=== PATIENT | male | born 1970 | race Caucasian/White ===

== ENCOUNTER 2016-11-27 09:10 | Inpatient (IN) | payer OTHER ==
[~2016-11-27] VITALS: Ht 175.2 cm; Wt 59.1 kg
--- NOTE | ~2016-11-27 | CON ---
[place], [place] REPORT OF CONSULTATION NAME: VERNON ANTONIO [facility] #: [id number] UNIT #: [id number] ROOM: 530 DOCTOR: FREDA DUNNE MD BIRTHDATE: [birth year] DOS: 11/27/2016 CARDIOLOGY CONSULTATION CHIEF COMPLAINT: Chest pain. HISTORY OF PRESENT ILLNESS: The patient is a 46-year-old man who has no previous history of coronary disease. About 1 week ago, he developed an aching sensation in his left chest that radiated to his back. This lasted 2-3 days and then resolved. Since then, however, he has been experiencing a tingling sensation from his left shoulder to his left hand. There is nothing that seems to make this any better or any worse, although it is best early in the day and worst as the day goes on. He denies any associated diaphoresis, nausea or dyspnea. Exertion does not seem to make the pain immediately worse. He was hospitalized today for these complaints. Thus far, his electrocardiogram shows no acute changes and troponin levels have been normal. PAST MEDICAL HISTORY: Includes: 1. Remote history of alcohol abuse. The patient has been abstinent for quite some time. 2. History of cigarette abuse. The patient has curtailed his use recently, but still smokes several cigarettes a day. The patient denies any history of hypertension, diabetes, hyperlipidemia, myocardial infarction or stroke. FAMILY HISTORY: The patient's father had a "silent heart attack before his 60s." He has had 3 heart attacks in his late 60s in the last year or so. His mother has a history of chronic kidney disease. MEDICATIONS: Prior to admission, the patient had no prescribed medications prior to admission. ALLERGIES: The patient has no known drug allergies. REVIEW OF SYSTEMS: The patient denies diplopia or loss of vision. He denies focal weakness, but he does think that his left arm has been slightly weaker since it has become tingly. He denies fevers, chills, sweats or recent weight change. He denies nausea or vomiting. He denies orthopnea or PND. He denies cough, hemoptysis or hematemesis. He denies any change in bowel or bladder habits. He denies any blood in his stools or urine. He denies any peripheral edema. He denies any hot or swollen joints. He denies heat intolerance, polydipsia or polyuria. He denies any skin rashes. The remainder of the review of systems is negative except as noted above. 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 He does smoke several cigarettes a day. PHYSICAL EXAMINATION: [place], [place] REPORT OF CONSULTATION NAME: VERNON ANTONIO UNIT #: [id number] ROOM: 530 DOCTOR: FREDA DUNNE MD BIRTHDATE: [birth year] GENERAL: The patient is a slender white male who is awake, alert and oriented. VITAL SIGNS: Pulse is 60 and regular, blood pressure is 110/64. He is afebrile. He weighs 59.1 kg and has a body mass index of 19.3 HEENT: Normocephalic, atraumatic. Extraocular muscles are intact. Sclerae are clear. Pupils are equal, round and reactive to light. The oral mucosa is moist. Tongue is midline. NECK: Supple. He has no jugular distention. Carotids are full. He has no bruits. He has no neck or supraclavicular masses. LUNGS: Respirations are unlabored. His chest is clear to auscultation and percussion. He has no presacral edema or chest wall tenderness. CARDIOVASCULAR: His heart has a regular rhythm. He has a fourth heart sound, but no third heart sound. He has no significant murmurs. The PMI is not displaced. There is no precordial heave, lift or thrill. ABDOMEN: Soft and normally active without masses, organomegaly or bruits. EXTREMITIES: Showed no clubbing, cyanosis or edema. Peripheral pulses are easily palpated bilaterally. LABORATORY DATA: I reviewed his electrocardiogram. It does show biatrial enlargement, but no ST or T-wave changes and no evidence for previous myocardial infarction. Serial troponin levels have been normal thus far. Hemoglobin is 14.8, white count 11,900, platelet count 382,000. Sodium 140, potassium 4.0, BUN 14 and creatinine 0.93. IMPRESSION AND PLAN: Atypical chest pain. This is most likely musculoskeletal in origin; however, he does have risk factors of family history of coronary disease and cigarette abuse. Further assessment is therefore indicated. We will observe his cardiac biomarkers overnight. If there are no problems by morning, then we will proceed with an exercise myocardial perfusion study. Further recommendations will depend upon the results of his examinations. We thank the hospitalist group for asking our advice regarding his care. FREDA DUNNE MD CM:CONSTR:REPORT OF CONSULTATION [id number] 11/27/16 2312 interface
--- NOTE | ~2016-11-27 | PR ---
[place], [place] PROGRESS NOTE NAME: VERNON ANTONIO [facility] #: [id number] UNIT #: [id number] ROOM: 530 DOCTOR: FREDA DUNNE MD BIRTHDATE: [birth year] DOS: 11/28/2016 SUBJECTIVE: The patient was seen in the cardiology department just prior to his stress test today 11/28/2016. He is a 46-year-old man without any previous history of coronary disease who was admitted to the hospital with a sensation of left chest pain and tingling in his left arm. He has ruled out for myocardial infarction. He states that nothing much has changed since I saw him last evening. PHYSICAL EXAMINATION: VITAL SIGNS: Today, his pulse is 64 and regular, blood pressure of 109/61. He is afebrile. NECK: Supple. He has no jugular distention. Carotids are full without bruits. LUNGS: Respirations are unlabored. His chest is clear to auscultation and percussion. He has no presacral edema or chest wall tenderness. HEART: Has regular rhythm. He has a fourth heart sound, but no third heart sound or murmur. ABDOMEN: Soft and normoactive. EXTREMITIES: Showed no edema. IMPRESSION: 1. Atypical chest pain. 2. History of cigarette abuse. PLAN: We will proceed with an exercise stress test today. Further recommendations will depend upon the results of his stress test. I thank the hospitalist physicians for asking our advice regarding his care. FREDA DUNNE MD CM:PNTRANS [phone] FREDA DUNNE MD 11/29/16 0045 interface
[~2016-11-27 09:10] MED LIST: AMOXICILLIN500 MG PO; CIPROFLOXACIN500 MG PO; HYDROCODONE BIT1 T11 PO; KEFLEX500 MG PO; MOTRIN800 MG PO; NKHM PO
[2016-11-27 09:20] VITALS: BP 143/87
[2016-11-27 09:23] LABS: BASO # 0.1 10*3/uL (0.0-0.1); BASO % 0.7 % (0.0-1.0); EOS # 0.2 10*3/uL (0.0-0.4); EOS % 1.5 % (1.0-4.0); HEMATOCRIT 45.2 % (42.0-52.0); HEMOGLOBIN 14.8 g/dl (14.0-18.0); LYMPH % 25.3 % (27.0-41.0); MEAN CELL VOLUME 90.6 fl (80.0-94.0); MEAN CORPUSCULAR HGB 29.7 pg (27.0-31.0); MEAN CORPUSCULAR HGB CONC 32.7 g/dl (33.0-37.0); MEAN PLATELET VOLUME 10.4 fl (9.6-12.3); MONO % 8.5 % (3.0-9.0); NEUT # 7.6 10*3/uL (2.3-7.9); NEUT % 63.7 % (47.0-73.0); PLATELET COUNT AUTOMATED 382 10*3/uL (130-400); RED BLOOD COUNT 4.99 10*6/uL (4.50-5.90); RED CELL DISTRI WIDTH 13.4 % (0-14.5); WHITE BLOOD COUNT 11.9 10*3/uL (4.8-10.8)
[2016-11-27 09:33] LABS: ACT PARTIAL THROMBO TIME 25.7 SECONDS (20.8-31.5)
[2016-11-27 09:51] LABS: ALBUMIN 4.2 gm/dl (3.1-4.5); ALKALINE PHOSPHATASE 115 U/L (45-117); BUN 14 mg/dl (7-24); CHLORIDE 106 mmol/L (98-107); CREATININE 0.93 mg/dL (0.70-1.30); LIPASE 138 U/L (73-393); MAGNESIUM 2.1 mg/dL (1.5-2.1); SGOT/AST 17 IU/L (3-35); SGPT/ALT 18 U/L (12-78); SODIUM 140 mmol/L (136-145); TOTAL PROTEIN 7.1 gm/dL (6.4-8.2)
[2016-11-27 09:57] LABS: TROPONIN I < 0.015 ng/ml (<0.045)
[2016-11-27 10:08] VITALS: BP 126/76
--- NOTE | 2016-11-27 10:13 | NUR ---
REPORT ATTEMPTED AT THIS TIME. NURSE NOT AVAILABLE. STATES THEY WILL CALL BACK
[2016-11-27 10:40] VITALS: BP 130/74
--- NOTE | 2016-11-27 10:40 | NUR ---
A 46, admitted to , under the services of SUZI Ca DO with a diagnosis of chest pain. Chief complaint is chest pain, tingling in left arm. Patient arrived via bed from ER. Monitor applied. Initial assessment completed. Vital signs taken and recorded. SUZI CA DO notified of admission to the unit. Orders received. See assessment for past medical history, medications and allergies. Patient and/or family oriented to unit. [facility]. Clothing/patient valuable form completed. ALICE HENDRIX
[2016-11-27 11:08] VITALS: BP 130/74
--- NOTE | 2016-11-27 14:05 | NUR ---
CALL PLACED TO 'S OFFICE FOR NEW CONSULT ORDER SPOKE TO RASHEEDA
[2016-11-27 16:00] VITALS: BP 109/64
[2016-11-27 20:00] VITALS: BP 106/60
[2016-11-28] VITALS: BP 109/61
--- NOTE | 2016-11-28 04:42 | NUR ---
[employer] WAS DOWN FOR FIRST PORTION OF SHIFT REFER TO PAPER MAR AND WRITTEN PROGRESS NOTES.
[2016-11-28 06:16] LABS: BASO # 0.1 10*3/uL (0.0-0.1); BASO % 0.6 % (0.0-1.0); EOS # 0.3 10*3/uL (0.0-0.4); EOS % 2.4 % (1.0-4.0); HEMATOCRIT 45.7 % (42.0-52.0); HEMOGLOBIN 14.6 g/dl (14.0-18.0); LYMPH # 4.1 10*3/uL (1.3-4.4); LYMPH % 31.6 % (27.0-41.0); MEAN CELL VOLUME 92.3 fl (80.0-94.0); MEAN CORPUSCULAR HGB 29.5 pg (27.0-31.0); MEAN CORPUSCULAR HGB CONC 31.9 g/dl (33.0-37.0); MEAN PLATELET VOLUME 10.9 fl (9.6-12.3); MONO % 7.3 % (3.0-9.0); NEUT # 7.6 10*3/uL (2.3-7.9); NEUT % 57.9 % (47.0-73.0); PLATELET COUNT AUTOMATED 380 10*3/uL (130-400); RED BLOOD COUNT 4.95 10*6/uL (4.50-5.90); RED CELL DISTRI WIDTH 13.7 % (0-14.5); WHITE BLOOD COUNT 13.1 10*3/uL (4.8-10.8)
[2016-11-28 07:19] LABS: ALBUMIN 3.8 gm/dl (3.1-4.5); ALKALINE PHOSPHATASE 98 U/L (45-117); BUN 16 mg/dl (7-24); CHLORIDE 108 mmol/L (98-107); CHOLESTEROL 167 mg/dL (<200); CREATININE 0.78 mg/dL (0.70-1.30); HDL CHOLESTEROL 65 mg/dl (40-60); LDL CHOLESTEROL 87 mg/dL (9-159); MAGNESIUM 2.2 mg/dL (1.5-2.1); PHOSPHOROUS 3.4 mg/dL (2.5-4.9); POTASSIUM 4.8 mmol/L (3.5-5.1); SGOT/AST 14 IU/L (3-35); SGPT/ALT 15 U/L (12-78); SODIUM 141 mmol/L (136-145); TOTAL PROTEIN 6.6 gm/dL (6.4-8.2); TRIGLYCERIDES 73 mg/dl (<150); VLDL CHOLESTEROL 15 mg/dL (6-40)
--- NOTE | 2016-11-28 09:00 | NUR ---
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 Patient states lives at home with . There are few steps in the home. Physician: tank Pharmacy: mail Home health services: none Patient's level of ADLs: INDEPENDENT Patient has working utilities: all working DME: none Follow-up physician's appointment after d/c: will be made by hosptialist nurse director upon discharge Does patient want to access PORTAL?: no Discharge plan discussed with patient, patient lives at home with , is independent in adls and ambulation, works, drives, patient will be going back home when able and denies any home needs. KALYN CARDENAS
--- NOTE | 2016-11-28 09:30 | NUR ---
INFORMED CONSENT OBTAINED FOR EXERCISE CARDIOLITE STRESS TEST WITH DR. DUNNE. RESTING EKG NSR WITH A SUPINE HR OF 60 WITH BP OF 122/62 AND HR OF 61 WITH BP OF 124/68 IN STANDING POSITION. PT COMPLETED 11:30 OF A JADYN PROTOCOL WITH COMPLETION OF 2:30 OF STAGE IV AT 4.2 MPH AND 16% GRADE. REACHED A PEAK HR OF 160 WHICH IS 92% OF PREDICTED MAX WITH PEAK BP OF 166/80. TEST TERMINATED BECAUSE OF FATIGUE. HAD NO CHEST PAIN OR ANY EKG CHANGES. LAST RECOVERY HR OF 95 WITH BP OF 130/74. HAS A HIGH EXERCISE TOLERANCE. TO NUCLEAR MEDICINE IN STABLE CONDITION FOR SCANNING.
[2016-11-28 12:00] VITALS: BP 115/60
--- NOTE | 2016-11-28 15:41 | NUR ---
Discharge instructions reviewed with patient/family. Patient receptive and verbalizes understanding. Follow-up care arranged. Written instructions given to patient/family. UMA JACKMAN
== END 2016-11-28 15:41 | disposition home or self-care (01) | DRG 392 ==
LOC: ED 09:10 → EDHOLD 10:00 → 5E 10:00
PROVIDERS: Emergency Medicine; ADMIT Internal Medicine
PROC: 4A02XM4 Measurement of Cardiac Total Activity, External Approach (ICD-10-PCS; principal; 2016-11-28)
DX: K21.9 Gastro-esophageal reflux disease without esophagitis (principal); D72.829 Elevated white blood cell count, unspecified; R03.0 Elevated blood-pressure reading, without diagnosis of hypertension; Z72.0 Tobacco use; Z71.6 Tobacco abuse counseling; Z84.1 Family history of disorders of kidney and ureter; Z82.49 Family history of ischemic heart disease and other diseases of the circulatory system

== ENCOUNTER → 2016-12-10 | Outpatient (CLI) | payer OTHER | END | disposition home or self-care (01) | LOC: CT 08:48 | DX: C45.9 Mesothelioma, unspecified (principal); R07.89 Other chest pain ==

== ENCOUNTER → 2016-12-22 | Outpatient (CLI) | payer OTHER ==
[2016-12-22 15:16] LABS: CHOLESTEROL 149 mg/dL (<200); HDL CHOLESTEROL 57 mg/dl (40-60); LDL CHOLESTEROL 49 mg/dL (9-159); TRIGLYCERIDES 217 mg/dl (<150); VLDL CHOLESTEROL 43 mg/dL (6-40)
== END | disposition home or self-care (01) ==
LOC: LAB 13:50
PROVIDERS: Family Medicine
DX: E78.00 Pure hypercholesterolemia, unspecified (principal)

== ENCOUNTER 2017-06-25 21:50 | Emergency (ER) | payer OTHER ==
[~2017-06-25] VITALS: Ht 175.2 cm; Wt 64.9 kg
[2017-06-25 22:27] LABS: BASO # 0.1 10*3/uL (0.0-0.1); BASO % 0.9 % (0.0-1.0); EOS # 0.2 10*3/uL (0.0-0.4); HEMATOCRIT 42.2 % (42.0-52.0); HEMOGLOBIN 13.6 g/dl (14.0-18.0); LYMPH # 3.1 10*3/uL (1.3-4.4); LYMPH % 26.7 % (27.0-41.0); MEAN CELL VOLUME 90.2 fl (80.0-94.0); MEAN CORPUSCULAR HGB 29.1 pg (27.0-31.0); MEAN CORPUSCULAR HGB CONC 32.2 g/dl (33.0-37.0); MEAN PLATELET VOLUME 10.1 fl (9.6-12.3); MONO % 8.2 % (3.0-9.0); NEUT # 7.3 10*3/uL (2.3-7.9); PLATELET COUNT AUTOMATED 404 10*3/uL (130-400); RED BLOOD COUNT 4.68 10*6/uL (4.50-5.90); RED CELL DISTRI WIDTH 13.3 % (0-14.5); WHITE BLOOD COUNT 11.7 10*3/uL (4.8-10.8)
[2017-06-25 22:35] LABS: INTERNATIONAL NORM RATIO 0.9 (2.0-3.5)
[2017-06-25 22:39] LABS: BILIRUBIN NEGATIVE (NEGATIVE); BLOOD NEGATIVE (NEGATIVE); CLARITY CLEAR (CLEAR); COLOR YELLOW (YELLOW); GLUCOSE NEGATIVE (NEGATIVE); KETONE NEGATIVE (NEGATIVE); LEUKO ESTERASE TRACE (NEGATIVE); NITRITE NEGATIVE (NEGATIVE); UROBILINOGEN 0.2 E.U./dl (0.2-1.0)
[2017-06-25 22:42] LABS: ALBUMIN 3.9 gm/dl (3.1-4.5); ALKALINE PHOSPHATASE 117 U/L (45-117); BUN 9 mg/dl (7-24); CHLORIDE 106 mmol/L (98-107); CREATININE 0.91 mg/dL (0.70-1.30); POTASSIUM 3.7 mmol/L (3.5-5.1); SGOT/AST 14 IU/L (3-35); SGPT/ALT 25 U/L (12-78); SODIUM 141 mmol/L (136-145); TOTAL PROTEIN 6.9 gm/dL (6.4-8.2)
[2017-06-25 22:43] LABS: TROPONIN I < 0.015 ng/ml (<0.045)
[2017-06-25 22:48] LABS: URINE AMPHETAMINES < 1000 (1000ng/ml); URINE BARBITURATES < 200 (200ng/ml); URINE BENZODIAZEPINES < 200 (200ng/ml); URINE CANNABINOIDS (THC) < 50 (50ng/ml); URINE COCAINE < 300 (300ng/ml); URINE METHADONE < 300 (300ng/ml); URINE OPIATES < 300 (300ng/ml)
[2017-06-25 22:50] LABS: URINE PHENCYCLIDINE < 25 (25ng/ml)
[2017-06-25] MEDS ORDERED: ATIVAN1 MG PO (23:30)
== END 2017-06-25 23:41 | disposition home or self-care (01) ==
LOC: ED 21:50
PROVIDERS: Emergency Medicine Emergency Medical Services
DX: R00.2 Palpitations (principal); F41.9 Anxiety disorder, unspecified; F10.10 Alcohol abuse, uncomplicated

== ENCOUNTER → 2017-07-28 | Outpatient (CLI) | payer OTHER ==
[~2017-07-28] MED LIST changes: +ATIVAN1 MG PO
[2017-07-28 09:52] LABS: HEMATOCRIT 45.6 % (42.0-52.0); HEMOGLOBIN 14.8 g/dl (14.0-18.0); MEAN CORPUSCULAR HGB 29.5 pg (27.0-31.0); MEAN CORPUSCULAR HGB CONC 32.5 g/dl (33.0-37.0); MEAN PLATELET VOLUME 11.1 fl (9.6-12.3); RED BLOOD COUNT 5.01 10*6/uL (4.50-5.90); RED CELL DISTRI WIDTH 13.7 % (0-14.5); WHITE BLOOD COUNT 10.7 10*3/uL (4.8-10.8)
[2017-07-28 10:21] LABS: ALBUMIN 4.1 gm/dl (3.1-4.5); BUN 13 mg/dl (7-24); CHLORIDE 108 mmol/L (98-107); CREATININE 0.84 mg/dL (0.70-1.30); HDL CHOLESTEROL 88 mg/dl (40-60); IRON 172 ug/dL (65-175); SGOT/AST 17 IU/L (3-35); SGPT/ALT 22 U/L (12-78); SODIUM 140 mmol/L (136-145)
[2017-07-28 10:24] LABS: ALKALINE PHOSPHATASE 117 U/L (45-117); CHOLESTEROL 181 mg/dL (<200); LDL CHOLESTEROL 80 mg/dL (9-159); TOTAL IRON BINDING CAPACITY 378 ug/dl (250-450); TOTAL PROTEIN 7.4 gm/dL (6.4-8.2); TRIGLYCERIDES 64 mg/dl (<150); VLDL CHOLESTEROL 13 mg/dL (6-40)
== END | disposition home or self-care (01) ==
LOC: LAB 09:01
PROVIDERS: Family Medicine
DX: D64.9 Anemia, unspecified (principal); J44.9 Chronic obstructive pulmonary disease, unspecified; E78.00 Pure hypercholesterolemia, unspecified

== ENCOUNTER 2017-08-08 14:41 | Emergency (ER) | payer OTHER ==
[~2017-08-08] VITALS: Ht 175.2 cm; Wt 67.6 kg
== END 2017-08-08 15:08 | disposition home or self-care (01) ==
LOC: ED 14:41
DX: S01.01XA Laceration without foreign body of scalp, initial encounter (principal); F41.9 Anxiety disorder, unspecified; W22.8XXA Striking against or struck by other objects, initial encounter; Y93.89 Activity, other specified; Y92.89 Other specified places as the place of occurrence of the external cause; Y99.8 Other external cause status

== ENCOUNTER → 2018-12-24 | Outpatient (CLI) | payer OTHER ==
[2018-12-24 14:27] LABS: HEMATOCRIT 42.1 % (42.0-52.0); HEMOGLOBIN 13.5 g/dl (14.0-18.0); MEAN CELL VOLUME 93.1 fl (80.0-94.0); MEAN CORPUSCULAR HGB 29.9 pg (27.0-31.0); MEAN CORPUSCULAR HGB CONC 32.1 g/dl (33.0-37.0); MEAN PLATELET VOLUME 9.9 fl (9.6-12.3); RED BLOOD COUNT 4.52 10*6/uL (4.50-5.90); RED CELL DISTRI WIDTH 13.3 % (0-14.5); WHITE BLOOD COUNT 9.5 10*3/uL (4.8-10.8)
[2018-12-24 14:58] LABS: ALBUMIN 3.7 gm/dl (3.1-4.5); ALKALINE PHOSPHATASE 117 U/L (45-117); BUN 14 mg/dl (7-24); CHLORIDE 107 mmol/L (98-107); CHOLESTEROL 151 mg/dL (<200); CREATININE 1.02 mg/dL (0.70-1.30); HDL CHOLESTEROL 66 mg/dl (40-60); LDL CHOLESTEROL 51 mg/dL (9-159); POTASSIUM 3.8 mmol/L (3.5-5.1); SGOT/AST 10 IU/L (3-35); SGPT/ALT 22 U/L (12-78); SODIUM 141 mmol/L (136-145); TOTAL PROTEIN 6.8 gm/dL (6.4-8.2); TRIGLYCERIDES 169 mg/dl (<150); VLDL CHOLESTEROL 34 mg/dL (6-40)
== END | disposition home or self-care (01) ==
LOC: LAB 13:58
PROVIDERS: Nurse Practitioner Family
DX: Z12.5 Encounter for screening for malignant neoplasm of prostate (principal); E55.9 Vitamin D deficiency, unspecified; R53.83 Other fatigue

== ENCOUNTER → 2019-04-06 | Outpatient (CLI) | payer OTHER ==
[2019-04-06 14:51] LABS: ALBUMIN 4.1 gm/dl (3.1-4.5); BUN 10 mg/dl (7-24); CHLORIDE 106 mmol/L (98-107); CHOLESTEROL 171 mg/dL (<200); POTASSIUM 3.9 mmol/L (3.5-5.1); SGOT/AST 18 IU/L (3-35); SGPT/ALT 26 U/L (12-78); SODIUM 139 mmol/L (136-145); TRIGLYCERIDES 61 mg/dl (<150); VLDL CHOLESTEROL 12 mg/dL (6-40)
[2019-04-06 14:52] LABS: ALKALINE PHOSPHATASE 138 U/L (45-117); HDL CHOLESTEROL 87 mg/dl (40-60); LDL CHOLESTEROL 72 mg/dL (9-159); TOTAL PROTEIN 7.5 gm/dL (6.4-8.2)
== END | disposition home or self-care (01) ==
LOC: LAB 13:41
PROVIDERS: Family Medicine
DX: E78.00 Pure hypercholesterolemia, unspecified (principal); E55.9 Vitamin D deficiency, unspecified

== ENCOUNTER 2019-07-24 18:02 | Emergency (ER) | payer OTHER ==
[~2019-07-24] VITALS: Ht 175.2 cm; Wt 68.0 kg
[2019-07-24 19:04] LABS: BASO # 0.1 10*3/uL (0.0-0.1); BASO % 0.7 % (0.0-1.0); EOS # 0.8 10*3/uL (0.0-0.4); EOS % 5.3 % (1.0-4.0); HEMATOCRIT 45.9 % (42.0-52.0); LYMPH # 2.1 10*3/uL (1.3-4.4); LYMPH % 13.5 % (27.0-41.0); MEAN CELL VOLUME 92.9 fl (80.0-94.0); MEAN CORPUSCULAR HGB 30.4 pg (27.0-31.0); MEAN CORPUSCULAR HGB CONC 32.7 g/dl (33.0-37.0); MEAN PLATELET VOLUME 10.2 fl (9.6-12.3); MONO # 1.4 10*3/uL (0.1-1.0); MONO % 8.8 % (3.0-9.0); NEUT # 10.9 10*3/uL (2.3-7.9); NEUT % 71.4 % (47.0-73.0); PLATELET COUNT AUTOMATED 376 10*3/uL (130-400); RED BLOOD COUNT 4.94 10*6/uL (4.50-5.90); RED CELL DISTRI WIDTH 13.2 % (0-14.5); WHITE BLOOD COUNT 15.3 10*3/uL (4.8-10.8)
[2019-07-24 19:15] LABS: ACT PARTIAL THROMBO TIME 28.3 SECONDS (20.0-32.1)
[2019-07-24 19:20] LABS: ALBUMIN 3.9 gm/dl (3.1-4.5); ALKALINE PHOSPHATASE 132 U/L (45-117); BUN 6 mg/dl (7-24); CHLORIDE 106 mmol/L (98-107); CREATININE 0.77 mg/dL (0.70-1.30); POTASSIUM 3.9 mmol/L (3.5-5.1); SGOT/AST 15 IU/L (3-35); SGPT/ALT 24 U/L (12-78); SODIUM 137 mmol/L (136-145); TOTAL PROTEIN 7.4 gm/dL (6.4-8.2)
[2019-07-24 19:22] LABS: TROPONIN I < 0.015 ng/ml (<0.045)
[2019-07-24] MEDS ORDERED: ZITHROMAX250 MG PO (21:03)
[2019-07-24] MEDS ORDERED: PREDNISONE20 M1 PO (21:03)
== END 2019-07-24 21:14 | disposition home or self-care (01) ==
LOC: ED 18:02
PROVIDERS: Physician Assistant
DX: Z03.818 Encounter for observation for suspected exposure to other biological agents ruled out (principal); J44.9 Chronic obstructive pulmonary disease, unspecified; R07.89 Other chest pain; Z79.899 Other long term (current) drug therapy; Z87.891 Personal history of nicotine dependence

== ENCOUNTER → 2019-08-15 | Outpatient (CLI) | payer OTHER ==
[~2019-08-15] MED LIST changes: +PREDNISONE20 M1 PO; +ZITHROMAX250 MG PO
[2019-08-15 16:32] LABS: HEMATOCRIT 47.7 % (42.0-52.0); MEAN CELL VOLUME 91.9 fl (80.0-94.0); MEAN CORPUSCULAR HGB 30.1 pg (27.0-31.0); MEAN CORPUSCULAR HGB CONC 32.7 g/dl (33.0-37.0); MEAN PLATELET VOLUME 9.6 fl (9.6-12.3); RED BLOOD COUNT 5.19 10*6/uL (4.50-5.90); RED CELL DISTRI WIDTH 12.6 % (0-14.5); WHITE BLOOD COUNT 12.3 10*3/uL (4.8-10.8)
[2019-08-15 16:47] LABS: ALBUMIN 3.7 gm/dl (3.1-4.5); ALKALINE PHOSPHATASE 212 U/L (45-117); BUN 7 mg/dl (7-24); CHLORIDE 104 mmol/L (98-107); CREATININE 0.89 mg/dL (0.70-1.30); POTASSIUM 3.9 mmol/L (3.5-5.1); SGOT/AST 9 IU/L (3-35); SGPT/ALT 19 U/L (12-78); SODIUM 137 mmol/L (136-145); TOTAL PROTEIN 7.3 gm/dL (6.4-8.2)
== END | disposition home or self-care (01) ==
LOC: LAB 16:06
PROVIDERS: Family Medicine
DX: J43.9 Emphysema, unspecified (principal); J40 Bronchitis, not specified as acute or chronic; E55.9 Vitamin D deficiency, unspecified

== ENCOUNTER → 2019-09-23 | Outpatient (CLI) | payer OTHER ==
[2019-09-23 14:20] LABS: HEMATOCRIT 44.8 % (42.0-52.0); MEAN CELL VOLUME 91.8 fl (80.0-94.0); MEAN CORPUSCULAR HGB 29.9 pg (27.0-31.0); MEAN CORPUSCULAR HGB CONC 32.6 g/dl (33.0-37.0); MEAN PLATELET VOLUME 9.7 fl (9.6-12.3); RED BLOOD COUNT 4.88 10*6/uL (4.50-5.90); WHITE BLOOD COUNT 10.7 10*3/uL (4.8-10.8)
== END | disposition home or self-care (01) ==
LOC: LAB 13:56
PROVIDERS: Family Medicine
DX: D72.829 Elevated white blood cell count, unspecified (principal)

== ENCOUNTER → 2019-10-15 | Outpatient (CLI) | payer OTHER | END | disposition home or self-care (01) | LOC: RAD 12:47 | DX: R05 Cough (principal); R07.89 Other chest pain ==

== ENCOUNTER → 2019-12-09 | Outpatient (CLI) | payer OTHER ==
[2019-12-09 14:09] LABS: HEMATOCRIT 43.5 % (42.0-52.0); MEAN CELL VOLUME 89.9 fl (80.0-94.0); MEAN CORPUSCULAR HGB 29.1 pg (27.0-31.0); MEAN CORPUSCULAR HGB CONC 32.4 g/dl (33.0-37.0); RED BLOOD COUNT 4.84 10*6/uL (4.50-5.90); RED CELL DISTRI WIDTH 13.1 % (0-14.5); WHITE BLOOD COUNT 10.1 10*3/uL (4.8-10.8)
[2019-12-09 14:38] LABS: ALBUMIN 4.1 gm/dl (3.1-4.5); ALKALINE PHOSPHATASE 112 U/L (45-117); BUN 11 mg/dl (7-24); CHLORIDE 106 mmol/L (98-107); CHOLESTEROL 175 mg/dL (<200); HDL CHOLESTEROL 67 mg/dl (40-60); LDL CHOLESTEROL 90 mg/dL (9-159); POTASSIUM 4.2 mmol/L (3.5-5.1); SGOT/AST 20 IU/L (3-35); SGPT/ALT 34 U/L (12-78); SODIUM 142 mmol/L (136-145); TOTAL PROTEIN 7.2 gm/dL (6.4-8.2); TRIGLYCERIDES 91 mg/dl (<150); URIC ACID 4.7 mg/dL (3.5-7.2); VLDL CHOLESTEROL 18 mg/dL (6-40)
== END | disposition home or self-care (01) ==
LOC: LAB 13:50
PROVIDERS: ATTEND Family Medicine
DX: Z12.5 Encounter for screening for malignant neoplasm of prostate (principal); E78.00 Pure hypercholesterolemia, unspecified; E55.9 Vitamin D deficiency, unspecified; M10.9 Gout, unspecified

== ENCOUNTER → 2020-02-07 | Outpatient (CLI) | payer OTHER ==
[~2020-02-07] MED LIST changes: +CEFUROXIME AXE250 MG PO; +Ipratropium Brom3 ML NEB; +PREDNISONE5 MG PO; +VENT7GM INH; +ZYLOPRIM100 MG PO
== END | disposition home or self-care (01) ==
LOC: COVID19 08:21
PROVIDERS: ATTEND Nurse Practitioner Family
DX: Z20.828 Contact with and (suspected) exposure to other viral communicable diseases (principal)

== ENCOUNTER 2020-02-11 20:50 | Observation (INO) | payer OTHER ==
[~2020-02-11] VITALS: Ht 172.7 cm; Wt 63.3 kg
[~2020-02-11 20:50] MED LIST changes: -CEFUROXIME AXE250 MG PO; -Ipratropium Brom3 ML NEB; -PREDNISONE5 MG PO; -VENT7GM INH; -ZYLOPRIM100 MG PO
[2020-02-11 20:56] VITALS: BP 166/68
[2020-02-11 21:27] LABS: BASO # 0.1 10*3/uL (0.0-0.1); BASO % 0.9 % (0.0-1.0); EOS # 1.2 10*3/uL (0.0-0.4); EOS % 7.4 % (1.0-4.0); HEMATOCRIT 44.9 % (42.0-52.0); MEAN CORPUSCULAR HGB 28.9 pg (27.0-31.0); MEAN CORPUSCULAR HGB CONC 31.4 g/dl (33.0-37.0); MEAN PLATELET VOLUME 9.8 fl (9.6-12.3); MONO # 1.3 10*3/uL (0.1-1.0); MONO % 8.3 % (3.0-9.0); PLATELET COUNT AUTOMATED 544 10*3/uL (130-400); RED BLOOD COUNT 4.88 10*6/uL (4.50-5.90); RED CELL DISTRI WIDTH 13.5 % (0-14.5); WHITE BLOOD COUNT 15.6 10*3/uL (4.8-10.8)
[2020-02-11 21:46] LABS: ALKALINE PHOSPHATASE 138 U/L (45-117); BUN 11 mg/dl (7-24); CHLORIDE 105 mmol/L (98-107); CREATININE 0.82 mg/dL (0.70-1.30); POTASSIUM 3.8 mmol/L (3.5-5.1); SGOT/AST 13 IU/L (3-35); SGPT/ALT 18 U/L (12-78); SODIUM 139 mmol/L (136-145); TOTAL PROTEIN 7.2 gm/dL (6.4-8.2)
[2020-02-12] VITALS (7 sets, daily range): BP systolic 95–164; BP diastolic 60–80
--- NOTE | 2020-02-12 00:28 | NUR ---
PT RESTING IN ROOM COMFORTABLY. WATCHING TV. CALL LIGHT WITHIN REACH. WILL CONTINUE TO MONITOR.
--- NOTE | 2020-02-12 02:20 | NUR ---
PT RESTING COMFORTABLY IN BED. NO VOICED COMPLAINTS. CALL LIGHT WITHIN REACH. WILL CONTINUE TO MONITOR.
--- NOTE | 2020-02-12 08:45 | NUR ---
Time: 844 A 49 year old MALE admitted to [facility] under services of DR. JOSE DAVIS,JERROD. Chief complaint: SHORTNESS OF BREATH. JOSH QUINTEROS
[2020-02-12] MEDS ORDERED: ZYLOPRIM100 MG PO (08:53)
[2020-02-12] MEDS ORDERED: VENT7GM INH (08:54)
--- NOTE | 2020-02-12 10:50 | NUR ---
A 49, admitted to 5E, under the services of JERROD Melendrez MD with a diagnosis of COPD. Chief complaint is DYSPNEA. Patient arrived via stretcher from ER. Monitor applied. Initial assessment completed. Vital signs taken and recorded. JERROD MELENDREZ MD notified of admission to the unit. Orders received. See assessment for past medical history, medications and allergies. Patient and/or family oriented to unit. [facility] visitation policy reviewed. Clothing/patient valuable form completed. SANDRA NEFF
--- NOTE | 2020-02-12 20:30 | NUR ---
IN TO ASSESS PATIENT. PATIENT PLEASANT AND COOPERATIVE WITH ASSESSMENT AND STATES THAT HE FEELS GREAT AND HIS BREATHING IS MUCH BETTER THAT HE DOESN'T HAVE TO WEAR OXYGEN ANYMORE. WHEEZES NOTED IN THE BILATERAL UPPER LUNGS QUIÑONEZ. PATIENT DOES HAVE A PRODUCTIVE COUGH FOR BROWN SPUTUM. PATIENT HAS NO COMPLAINTS. CALL LIGHT WITHIN REACH, WILL MONITOR
[2020-02-13] VITALS: BP 124/78
--- NOTE | 2020-02-13 03:08 | NUR ---
PATIENT SLEEPING, NO DISTRESS NOTED. BREATHING IS EASY AND REGULAR ON ROOM AIR. CALL LIGHT WITHIN REACH, WILL MONITOR
--- NOTE | 2020-02-13 04:48 | NUR ---
24 HR chart check completed.
--- NOTE | 2020-02-13 07:25 | NUR ---
INTRODUCED SELF TO PATIENT BED IN LOW POSITION, WHEEL LOCKS ENGAGED, SIDE RAILS UP X 2 FOR TURNING AND REPOSITIONING, CALL LIGHT WITHIN REACH, NO NEEDS VOICED AT THIS TIME, WHITE BOARD UPDATED.
[2020-02-13 08:00] VITALS: BP 110/70; BP 112/68
--- NOTE | 2020-02-13 09:00 | NUR ---
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 Patient states lives at home with his and daughter. There are basement steps in the home. Physician: Dr. Gideon Putnam Pharmacy: [facility] Home health services: none Patient's level of ADLs: INDEPENDENT Patient has working utilities: yes DME: none Follow-up physician's appointment after d/c: he prefers to make his own follow up appt after discharge Does patient want to access PORTAL?: no Discharge plan discussed with patient. He lives at home with his family. He states he is independent in his ADLs and ambulation. Discussed home health care services and he declines. CM will continue to follow for any discharge planning needs. When medically stable he will be discharged to home. He states he will have transportation on discharge but is unsure of who at this time. MICHELLE BLACK
[2020-02-13 12:00] VITALS: BP 110/72
[2020-02-13 16:00] VITALS: BP 115/81
[2020-02-13 20:00] VITALS: BP 112/63
[2020-02-14] VITALS: BP 111/61
[2020-02-14 06:23] LABS: BASO % 0.1 % (0.0-1.0); EOS % 0.1 % (1.0-4.0); HEMATOCRIT 41.9 % (42.0-52.0); LYMPH # 2.4 10*3/uL (1.3-4.4); LYMPH % 17.4 % (27.0-41.0); MEAN CELL VOLUME 93.7 fl (80.0-94.0); MEAN CORPUSCULAR HGB 29.8 pg (27.0-31.0); MEAN CORPUSCULAR HGB CONC 31.7 g/dl (33.0-37.0); MEAN PLATELET VOLUME 10.1 fl (9.6-12.3); MONO # 0.9 10*3/uL (0.1-1.0); MONO % 6.5 % (3.0-9.0); NEUT # 10.4 10*3/uL (2.3-7.9); NEUT % 75.5 % (47.0-73.0); PLATELET COUNT AUTOMATED 478 10*3/uL (130-400); RED BLOOD COUNT 4.47 10*6/uL (4.50-5.90); RED CELL DISTRI WIDTH 13.9 % (0-14.5); WHITE BLOOD COUNT 13.7 10*3/uL (4.8-10.8)
[2020-02-14 06:51] LABS: BUN 15 mg/dl (7-24); CHLORIDE 106 mmol/L (98-107); CREATININE 0.79 mg/dL (0.70-1.30); POTASSIUM 4.2 mmol/L (3.5-5.1); SODIUM 140 mmol/L (136-145)
--- NOTE | 2020-02-14 07:30 | NUR ---
TOOK OVER CARE OF PT.PT RESTING IN BED. RESPIRATIONS EASY AND UNLABORED ON ROOM AIR. NO S/S OF DISTRESS NOTED. NO COMPLAINTS VOICED BY PT. CALL LIGHT IN REACH.
[2020-02-14] MEDS ORDERED: PREDNISONE5 MG PO (08:30)
[2020-02-14] MEDS ORDERED: CEFUROXIME AXE250 MG PO (08:30)
[2020-02-14] MEDS ORDERED: Ipratropium Brom3 ML NEB (08:32)
--- NOTE | 2020-02-14 09:30 | NUR ---
Discharge instructions reviewed with patient/family. Patient receptive and verbalizes understanding. Follow-up care arranged. Written instructions given to patient/family. DAYLIN MCHUGH
--- NOTE | 2020-02-14 10:15 | NUR ---
PT LEAVES AT THIS TIME VIA W/C FOR 'S CAR IN FRONT ENTRANCE PARKING LOT.
== END 2020-02-14 10:15 | disposition home or self-care (01) ==
LOC: ED 20:50 → EDHOLD 22:15 → 5E 22:15 → EDHOLD 22:15 → 5E 02-12 10:28
PROVIDERS: Internal Medicine; ADMIT Internal Medicine; ATTEND Internal Medicine
DX: J44.1 Chronic obstructive pulmonary disease with (acute) exacerbation (principal); J96.01 Acute respiratory failure with hypoxia; Z87.891 Personal history of nicotine dependence

== ENCOUNTER → 2020-03-05 | Outpatient (CLI) | payer OTHER ==
[~2020-03-05] MED LIST changes: +CEFUROXIME AXE250 MG PO; +Ipratropium Brom3 ML NEB; +PREDNISONE5 MG PO; +VENT7GM INH; +ZYLOPRIM100 MG PO
[2020-03-05 14:44] LABS: HEMATOCRIT 45.1 % (42.0-52.0); MEAN CELL VOLUME 94.5 fl (80.0-94.0); MEAN CORPUSCULAR HGB 29.6 pg (27.0-31.0); MEAN CORPUSCULAR HGB CONC 31.3 g/dl (33.0-37.0); MEAN PLATELET VOLUME 10.4 fl (9.6-12.3); RED BLOOD COUNT 4.77 10*6/uL (4.50-5.90); RED CELL DISTRI WIDTH 13.2 % (0-14.5); WHITE BLOOD COUNT 12.9 10*3/uL (4.8-10.8)
[2020-03-05 15:13] LABS: ALBUMIN 3.7 gm/dl (3.1-4.5); ALKALINE PHOSPHATASE 162 U/L (45-117); BUN 12 mg/dl (7-24); CHLORIDE 110 mmol/L (98-107); POTASSIUM 3.8 mmol/L (3.5-5.1); SGOT/AST 9 IU/L (3-35); SGPT/ALT 21 U/L (12-78); SODIUM 143 mmol/L (136-145)
== END | disposition home or self-care (01) ==
LOC: LAB 14:04
PROVIDERS: ATTEND Family Medicine
DX: R91.8 Other nonspecific abnormal finding of lung field (principal); J98.11 Atelectasis; R53.83 Other fatigue

== ENCOUNTER → 2020-04-09 | Outpatient (CLI) | payer OTHER ==
[2020-04-09 14:38] LABS: HEMATOCRIT 43.3 % (42.0-52.0); MEAN CELL VOLUME 90.8 fl (80.0-94.0); MEAN CORPUSCULAR HGB 28.7 pg (27.0-31.0); MEAN CORPUSCULAR HGB CONC 31.6 g/dl (33.0-37.0); MEAN PLATELET VOLUME 10.1 fl (9.6-12.3); RED BLOOD COUNT 4.77 10*6/uL (4.50-5.90); RED CELL DISTRI WIDTH 12.7 % (0-14.5); WHITE BLOOD COUNT 10.7 10*3/uL (4.8-10.8)
== END | disposition home or self-care (01) ==
LOC: LAB 14:26
PROVIDERS: ATTEND Family Medicine
DX: D72.820 Lymphocytosis (symptomatic) (principal)

== ENCOUNTER → 2020-08-23 | Outpatient (CLI) | payer OTHER ==
[2020-08-23 12:59] LABS: HEMATOCRIT 41.8 % (42.0-52.0); MEAN CELL VOLUME 91.7 fl (80.0-94.0); MEAN CORPUSCULAR HGB CONC 32.8 g/dl (33.0-37.0); MEAN PLATELET VOLUME 9.8 fl (9.6-12.3); RED BLOOD COUNT 4.56 10*6/uL (4.50-5.90); RED CELL DISTRI WIDTH 13.1 % (0-14.5); WHITE BLOOD COUNT 12.2 10*3/uL (4.8-10.8)
[2020-08-23 13:29] LABS: ALKALINE PHOSPHATASE 124 U/L (45-117); BUN 7 mg/dl (7-24); CHLORIDE 106 mmol/L (98-107); CHOLESTEROL 164 mg/dL (<200); CREATININE 0.82 mg/dL (0.70-1.30); LDL CHOLESTEROL 71 mg/dL (9-159); POTASSIUM 3.8 mmol/L (3.5-5.1); SGOT/AST 11 IU/L (3-35); SGPT/ALT 28 U/L (12-78); SODIUM 139 mmol/L (136-145); TOTAL PROTEIN 7.1 gm/dL (6.4-8.2); TRIGLYCERIDES 108 mg/dl (<150); URIC ACID 4.3 mg/dL (3.5-7.2)
== END | disposition home or self-care (01) ==
LOC: LAB 12:43
PROVIDERS: ATTEND Family Medicine
DX: E78.00 Pure hypercholesterolemia, unspecified (principal); E55.9 Vitamin D deficiency, unspecified; M25.562 Pain in left knee

== ENCOUNTER → 2020-09-20 | Outpatient (CLI) | payer OTHER ==
[2020-09-20 13:03] LABS: HEMATOCRIT 43.5 % (42.0-52.0); MEAN CELL VOLUME 92.8 fl (80.0-94.0); MEAN CORPUSCULAR HGB 30.1 pg (27.0-31.0); MEAN CORPUSCULAR HGB CONC 32.4 g/dl (33.0-37.0); MEAN PLATELET VOLUME 9.9 fl (9.6-12.3); RED BLOOD COUNT 4.69 10*6/uL (4.50-5.90); RED CELL DISTRI WIDTH 13.2 % (0-14.5); WHITE BLOOD COUNT 11.5 10*3/uL (4.8-10.8)
== END | disposition home or self-care (01) ==
LOC: LAB 12:45
PROVIDERS: ATTEND Family Medicine
DX: D72.829 Elevated white blood cell count, unspecified (principal)

== ENCOUNTER → 2020-10-12 | Outpatient (CLI) | payer OTHER ==
[2020-10-12 12:27] LABS: HEMATOCRIT 42.2 % (42.0-52.0); MEAN CELL VOLUME 92.1 fl (80.0-94.0); MEAN CORPUSCULAR HGB 29.9 pg (27.0-31.0); MEAN CORPUSCULAR HGB CONC 32.5 g/dl (33.0-37.0); MEAN PLATELET VOLUME 9.8 fl (9.6-12.3); RED BLOOD COUNT 4.58 10*6/uL (4.50-5.90); RED CELL DISTRI WIDTH 13.2 % (0-14.5); WHITE BLOOD COUNT 9.8 10*3/uL (4.8-10.8)
== END | disposition home or self-care (01) ==
LOC: LAB 12:14
PROVIDERS: ATTEND Family Medicine
DX: D72.829 Elevated white blood cell count, unspecified (principal)

== ENCOUNTER → 2021-06-11 | Outpatient (CLI) | payer OTHER ==
[2021-06-11 13:07] LABS: HEMATOCRIT 45.9 % (42.0-52.0); MEAN CELL VOLUME 93.5 fl (80.0-94.0); MEAN CORPUSCULAR HGB 30.1 pg (27.0-31.0); MEAN CORPUSCULAR HGB CONC 32.2 g/dl (33.0-37.0); MEAN PLATELET VOLUME 9.7 fl (9.6-12.3); RED BLOOD COUNT 4.91 10*6/uL (4.50-5.90); RED CELL DISTRI WIDTH 13.3 % (0-14.5)
[2021-06-11 13:24] LABS: ALKALINE PHOSPHATASE 140 U/L (45-117); BUN 9 mg/dl (7-24); CHLORIDE 107 mmol/L (98-107); CHOLESTEROL 146 mg/dL (<200); CREATININE 0.92 mg/dL (0.70-1.30); LDL CHOLESTEROL 57 mg/dL (9-159); POTASSIUM 3.9 mmol/L (3.5-5.1); SGOT/AST 15 IU/L (3-35); SGPT/ALT 25 U/L (12-78); SODIUM 141 mmol/L (136-145); TOTAL PROTEIN 7.2 gm/dL (6.4-8.2); TRIGLYCERIDES 141 mg/dl (<150); URIC ACID 3.8 mg/dL (3.5-7.2)
== END | disposition home or self-care (01) ==
LOC: LAB 12:49
PROVIDERS: ATTEND Family Medicine
DX: E78.00 Pure hypercholesterolemia, unspecified (principal); E55.9 Vitamin D deficiency, unspecified; M10.9 Gout, unspecified

== ENCOUNTER → 2021-07-17 | Outpatient (CLI) | payer OTHER ==
[2021-07-17 11:56] LABS: HEMATOCRIT 41.7 % (42.0-52.0); MEAN CELL VOLUME 91.2 fl (80.0-94.0); MEAN CORPUSCULAR HGB 30.4 pg (27.0-31.0); MEAN CORPUSCULAR HGB CONC 33.3 g/dl (33.0-37.0); MEAN PLATELET VOLUME 10.1 fl (9.6-12.3); RED BLOOD COUNT 4.57 10*6/uL (4.50-5.90); RED CELL DISTRI WIDTH 12.7 % (0-14.5); WHITE BLOOD COUNT 12.6 10*3/uL (4.8-10.8)
== END | disposition home or self-care (01) ==
LOC: LAB 11:05
PROVIDERS: ATTEND Family Medicine
DX: D72.820 Lymphocytosis (symptomatic) (principal)

== ENCOUNTER → 2021-08-02 | Outpatient (CLI) | payer OTHER ==
[2021-08-02 13:08] LABS: HEMATOCRIT 42.9 % (42.0-52.0); MEAN CELL VOLUME 91.5 fl (80.0-94.0); MEAN CORPUSCULAR HGB 30.1 pg (27.0-31.0); MEAN CORPUSCULAR HGB CONC 32.9 g/dl (33.0-37.0); MEAN PLATELET VOLUME 9.8 fl (9.6-12.3); RED BLOOD COUNT 4.69 10*6/uL (4.50-5.90); RED CELL DISTRI WIDTH 12.8 % (0-14.5); WHITE BLOOD COUNT 11.8 10*3/uL (4.8-10.8)
== END | disposition home or self-care (01) ==
LOC: LAB 12:53
PROVIDERS: ATTEND Family Medicine
DX: D72.819 Decreased white blood cell count, unspecified (principal)

== ENCOUNTER → 2021-09-02 | Outpatient (CLI) | payer OTHER ==
[2021-09-02 13:08] LABS: MEAN CELL VOLUME 91.3 fl (80.0-94.0); MEAN CORPUSCULAR HGB 30.1 pg (27.0-31.0); MEAN PLATELET VOLUME 9.8 fl (9.6-12.3); RED BLOOD COUNT 4.38 10*6/uL (4.50-5.90); RED CELL DISTRI WIDTH 13.1 % (0-14.5); WHITE BLOOD COUNT 11.4 10*3/uL (4.8-10.8)
== END ==
LOC: LAB 12:56
PROVIDERS: ATTEND Family Medicine
DX: D72.829 Elevated white blood cell count, unspecified (principal)

== ENCOUNTER → 2021-11-20 | Outpatient (CLI) | payer OTHER ==
[2021-11-20 13:22] LABS: BASO # 0.2 10*3/uL (0.0-0.1); BASO % 1.1 % (0.0-1.0); EOS # 1.5 10*3/uL (0.0-0.4); EOS % 10.9 % (1.0-4.0); HEMATOCRIT 43.1 % (42.0-52.0); LYMPH # 3.7 10*3/uL (1.3-4.4); LYMPH % 26.7 % (27.0-41.0); MEAN CELL VOLUME 92.7 fl (80.0-94.0); MEAN CORPUSCULAR HGB 30.5 pg (27.0-31.0); MEAN CORPUSCULAR HGB CONC 32.9 g/dl (33.0-37.0); MEAN PLATELET VOLUME 9.9 fl (9.6-12.3); MONO % 6.8 % (3.0-9.0); NEUT # 7.5 10*3/uL (2.3-7.9); NEUT % 54.1 % (47.0-73.0); PLATELET COUNT AUTOMATED 462 10*3/uL (130-400); RED BLOOD COUNT 4.65 10*6/uL (4.50-5.90); RED CELL DISTRI WIDTH 13.4 % (0-14.5); WHITE BLOOD COUNT 13.9 10*3/uL (4.8-10.8)
== END | disposition home or self-care (01) ==
LOC: LAB 13:04
PROVIDERS: ATTEND Family Medicine
DX: D72.829 Elevated white blood cell count, unspecified (principal)

== ENCOUNTER → 2021-11-22 | Outpatient (CLI) | payer OTHER ==
[2021-11-22 15:19] LABS: HEMATOCRIT 45.4 % (42.0-52.0); MEAN CELL VOLUME 92.3 fl (80.0-94.0); MEAN CORPUSCULAR HGB 29.9 pg (27.0-31.0); MEAN CORPUSCULAR HGB CONC 32.4 g/dl (33.0-37.0); MEAN PLATELET VOLUME 9.9 fl (9.6-12.3); RED BLOOD COUNT 4.92 10*6/uL (4.50-5.90); RED CELL DISTRI WIDTH 13.4 % (0-14.5)
== END | disposition home or self-care (01) ==
LOC: LAB 14:34
PROVIDERS: ATTEND Family Medicine
DX: D72.829 Elevated white blood cell count, unspecified (principal); R05.9 Cough, unspecified

== ENCOUNTER → 2021-12-12 | Outpatient (CLI) | payer OTHER ==
[2021-12-12 13:33] LABS: BASO # 0.1 10*3/uL (0.0-0.1); BASO % 0.7 % (0.0-1.0); EOS # 0.4 10*3/uL (0.0-0.4); EOS % 3.4 % (1.0-4.0); HEMATOCRIT 42.6 % (42.0-52.0); LYMPH # 3.1 10*3/uL (1.3-4.4); LYMPH % 28.8 % (27.0-41.0); MEAN CELL VOLUME 90.8 fl (80.0-94.0); MEAN CORPUSCULAR HGB 30.1 pg (27.0-31.0); MEAN CORPUSCULAR HGB CONC 33.1 g/dl (33.0-37.0); MEAN PLATELET VOLUME 9.8 fl (9.6-12.3); MONO # 0.9 10*3/uL (0.1-1.0); MONO % 8.1 % (3.0-9.0); NEUT # 6.3 10*3/uL (2.3-7.9); NEUT % 58.8 % (47.0-73.0); PLATELET COUNT AUTOMATED 444 10*3/uL (130-400); RED BLOOD COUNT 4.69 10*6/uL (4.50-5.90); RED CELL DISTRI WIDTH 13.1 % (0-14.5); WHITE BLOOD COUNT 10.8 10*3/uL (4.8-10.8)
== END | disposition home or self-care (01) ==
LOC: LAB 13:07
PROVIDERS: ATTEND Family Medicine
DX: D72.829 Elevated white blood cell count, unspecified (principal)

== ENCOUNTER → 2023-07-28 | Outpatient (CLI) | payer OTHER ==
[2023-07-28 09:32] LABS: HEMATOCRIT 47.5 % (42.0-52.0); MEAN CELL VOLUME 92.4 fl (80.0-94.0); MEAN CORPUSCULAR HGB 30.2 pg (27.0-31.0); MEAN CORPUSCULAR HGB CONC 32.6 g/dl (33.0-37.0); MEAN PLATELET VOLUME 10.2 fl (9.6-12.3); RED BLOOD COUNT 5.14 10*6/uL (4.50-5.90); RED CELL DISTRI WIDTH 12.8 % (0-14.5); WHITE BLOOD COUNT 11.8 10*3/uL (4.8-10.8)
[2023-07-28 10:18] LABS: ALKALINE PHOSPHATASE 138 U/L (46-116); BUN 16 mg/dl (9-23); CHLORIDE 106 mmol/L (98-107); CHOLESTEROL 149 mg/dL (<200); LDL CHOLESTEROL 72 mg/dL (9-159); POTASSIUM 3.7 mmol/L (3.4-5.1); SGPT/ALT 21 U/L (5-49); TRIGLYCERIDES 80 mg/dl (<150); URIC ACID 6.5 mg/dL (3.7-9.2)
[2023-07-28 10:24] LABS: VITAMIN D, 25-HYDROXY 90.1 ng/mL (30-100)
== END ==
LOC: LAB 09:07
PROVIDERS: ATTEND Family Medicine
DX: J44.9 Chronic obstructive pulmonary disease, unspecified (principal); J98.4 Other disorders of lung; E55.9 Vitamin D deficiency, unspecified; R06.02 Shortness of breath; E78.00 Pure hypercholesterolemia, unspecified

== ENCOUNTER → 2023-09-04 | Outpatient (CLI) | payer OTHER ==
[2023-09-04 10:32] LABS: HEMATOCRIT 45.1 % (42.0-52.0); MEAN CORPUSCULAR HGB 30.4 pg (27.0-31.0); MEAN PLATELET VOLUME 10.2 fl (9.6-12.3); RED BLOOD COUNT 4.9 10*6/uL (4.50-5.90); RED CELL DISTRI WIDTH 12.9 % (0-14.5); WHITE BLOOD COUNT 10.4 10*3/uL (4.8-10.8)
[2023-09-04 10:55] LABS: ALKALINE PHOSPHATASE 140 U/L (46-116); BUN 8 mg/dl (9-23); CHLORIDE 106 mmol/L (98-107); POTASSIUM 3.7 mmol/L (3.4-5.1); SGPT/ALT 20 U/L (5-49); TOTAL PROTEIN 6.4 gm/dL (6.0-8.0); URIC ACID 4.3 mg/dL (3.7-9.2)
== END ==
LOC: LAB 10:02
PROVIDERS: ATTEND Family Medicine
DX: E55.9 Vitamin D deficiency, unspecified (principal); M25.571 Pain in right ankle and joints of right foot; H17.9 Unspecified corneal scar and opacity